=== PATIENT | male | born 1975 | race American Indian/Alaskan Native ===

== ENCOUNTER 2016-06-07 23:11 | Emergency (ER) | payer SELFPAY | END 2016-06-07 23:38 | disposition left against medical advice (07) | LOC: ED 23:11 | DX: R05 Cough (principal); R50.9 Fever, unspecified; Z53.21 Procedure and treatment not carried out due to patient leaving prior to being seen by health care provider ==

== ENCOUNTER 2016-06-08 09:36 | Emergency (ER) | payer OTHER ==
[2016-06-08 10:12] LABS: Basophils % (Auto) 0.5 % (0.0-1.8); Eosinophils % (Auto) 0.3 % (0.0-4.3); Hematocrit 42.3 % (35.5-45.6); Hemoglobin 13.9 gm/dl (11.8-15.2); Mean Corpuscular HGB Conc 33 % (32-34); Mean Corpuscular Hemoglobin 29 pg (28-32); Mean Corpuscular Volume 90 fl (84-94); Platelet Count 302 K/mm3 (140-440); Red Blood Count 4.71 M/mm3 (3.65-5.03); Red Cell Distribution Width 14.4 % (13.2-15.2); White Blood Count 10.8 K/mm3 (4.5-11.0)
[2016-06-08 10:28] LABS: Anion Gap 16 mmol/L; BUN/Creatinine Ratio 9.09; Blood Urea Nitrogen 10 mg/dL (9-20); Calcium 9.5 mg/dL (8.4-10.2); Carbon Dioxide 26 mmol/L (22-30); Glucose 63 mg/dL (75-100); Potassium 4.1 mmol/L (3.6-5.0); Sodium 136 mmol/L (137-145)
--- NOTE | 2016-06-08 11:16 | XRay Report ---
PA and lateral chest: SOB. A frontal projection is generally unremarkable. The heart is normal in size and there is no vascular congestion nor is there any obvious infiltrate. There may be mild pleural thickening along the lower lateral left chest wall. In the lateral projection there is some question concerning a linear thickening in the lingula region. No prior study. Impression: Possible scar involving the lingula segment and left pleural surface. Doubt acute process.
--- NOTE | 2016-06-08 13:42 | Emergency Department Report ---
- General Chief Complaint: Dyspnea/Respdistress Stated Complaint: COUGH/POSS PNUEMONIA Time Seen by Provider: 06/08/16 13:12 Source: patient Mode of arrival: Ambulatory Limitations: No Limitations - History of Present Illness Initial Comments: 41-year-old male with a past medical history HIV and hypertension presents to the hospital with complaints of cough with green mucus for the past 4 days. Patient denies fever. Patient didn't smell left-sided rib and back pain worse with coughing. Pain rated 2/10 in intensity. Patient complains of mild palpitations with mild shortness of breath with exertion. Denies calf tenderness or edema. Patient states he has had pneumonia 4 times this yeardiagnosed by various emergency departments and treated with antibiotics. Patient has his first primary care doctor scheduled for the does not have infectious disease or ID doctor currently. Patient states his CD4 count was greater than 200 and his viral load is undetectable. He has been compliant with his HIV medication - Related Data Previous Rx's Medication Instructions Recorded Last Taken Type Azithromycin [Zithromax Z-ADDI] 1 dose PO DAILY 5 Days 06/08/16 Unknown Rx Allergies Allergy/AdvReac Type Severity Reaction Status Date / Time No Known Allergies Allergy Unverified 06/08/16 09:42 ED Review of Systems ROS: Stated complaint: COUGH/POSS PNUEMONIA Other details as noted in HPI Comment: All other systems reviewed and negative Other: Constitutional: No fevers chills Eyes: No eye pain visual changes ENT: No ear pain or throat pain Neck: Denies pain Respiratory: As per HPI Cardiovascular: As per HPI GI: Denies abdominal pain, nausea, vomiting, diarrhea : Denies dysuria Musculoskeletal: As per HPI Skin: Denies rash, lesions, erythema Neurologic: Denies headache, numbness, weakness Psychiatric: Denies suicidal ideation, hallucinations ED Past Medical Hx - Past Medical History Previous Medical History?: Yes Hx Hypertension: Yes Hx HIV: Yes - Surgical History Past Surgical History?: No - Social History Smoking Status: Never Smoker Substance Use Type: Alcohol - Medications Home Medications: Home Medications Medication Instructions Recorded Confirmed Last Taken Type Azithromycin [Zithromax Z-ADDI] 1 dose PO DAILY 5 Days 06/08/16 Unknown Rx ED Physical Exam - General Limitations: No Limitations - Other Other exam information: General: No limitations, patient is alert in no acute distress Head exam: Atraumatic, normocephalic Eyes exam: Normal appearance, pupils equal reactive to light, extraocular movements intact ENT: Moist mucous membrane, normal oropharynx Neck exam: Normal inspection, full range of motion, no meningismus nontender Respiratory exam: Clear to auscultation bilateral, no wheezes, rales, crackles Cardiovascular: Normal rate and rhythm Abdomen: Soft, nondistended, and nontender, with normal bowel sounds, no rebound, or guarding Extremity: Full range of motion normal inspection no deformity Back: Normal Inspection, full range of motion, no tenderness Neurologic: Alert, oriented x3, cranial nerves intact, no motor or sensory deficit Psychiatric: normal affect, normal mood Skin: Warm, dry, intact ED Course Vital Signs 06/08/16 09:42 Temperature 98.9 F Pulse Rate 91 H Respiratory 16 Rate Blood Pressure 129/71 O2 Sat by Pulse 100 Oximetry ED Medical Decision Making - Lab Data Result diagrams: 06/08/16 09:56 06/08/16 09:56 Lab Results 06/08/16 06/08/16 Range/Units 09:56 09:56 WBC 10.8 (4.5-11.0) K/mm3 RBC 4.71 (3.65-5.03) M/mm3 Hgb 13.9 (11.8-15.2) gm/dl Hct 42.3 (35.5-45.6) % MCV 90 (84-94) fl MCH 29 (28-32) pg MCHC 33 (32-34) % RDW 14.4 (13.2-15.2) % Plt Count 302 (140-440) K/mm3 Lymph % (Auto) 22.3 (13.4-35.0) % [place] % (Auto) 8.4 H (0.0-7.3) % Eos % (Auto) 0.3 (0.0-4.3) % Baso % (Auto) 0.5 (0.0-1.8) % Lymph # 2.4 (1.2-5.4) K/mm3 [place] # 0.9 H (0.0-0.8) K/mm3 Eos # 0.0 (0.0-0.4) K/mm3 Baso # 0.1 (0.0-0.1) K/mm3 Seg Neutrophils % 68.5 (40.0-70.0) % Seg Neutrophils # 7.4 (1.8-7.7) K/mm3 Sodium 136 L (137-145) mmol/L Potassium 4.1 (3.6-5.0) mmol/L Chloride 98.0 (98-107) mmol/L Carbon Dioxide 26 (22-30) mmol/L Anion Gap 16 mmol/L BUN 10 (9-20) mg/dL Creatinine 1.1 (0.8-1.5) mg/dL Estimated GFR > 60 ml/min BUN/Creatinine Ratio 9.09 % Glucose 63 L (75-100) mg/dL Calcium 9.5 (8.4-10.2) mg/dL - Radiology Data Radiology results: report reviewed (chest x-ray: Scarring to lingular) - Medical Decision Making Patient stable in the ED. No fever, normal WBC count, and no infiltrate on x- ray. Patient very concerned about possibility of pneumonia/early pneumonia and wants Levaquin. I discussed the risk of antibiotics resistance from being treated multiple times with antibiotics the last few months. I question whether or not patient had pneumonia each time especially if he has this chronic scarring on chest x-ray. This was discussed with patient. I will cover with a Z-Addi since he is concerned however, explain to him no definitive infiltrate has been seen. Follow-up with an alternative PMD, ID, and pulmonology will be provided. - Differential Diagnosis pneumonia, bronchitis, viral syndrome Critical Care Time: No Critical care attestation.: If time is entered above; I have spent that time in minutes in the direct care of this critically ill patient, excluding procedure time. ED Disposition Clinical Impression: Acute bronchitis, HIV disease Disposition: DISCHARGED TO HOME OR SELFCARE Is pt being admited?: No Does the pt Need Aspirin: No Condition: Stable Instructions: Acute Bronchitis (ED), Human Immunodeficiency Virus Infection (ED ) Additional Instructions: Take the medication as prescribed. Return if symptoms worsen. Follow-up with the doctors provided Prescriptions: Azithromycin [Zithromax Z-ADDI] 1 dose PO DAILY 5 Days Referrals: ARGENIS BRITT MD [Staff Physician] - 3-5 Days (Primary care doctor) RENEA ROSAS MD [Staff Physician] - 3-5 Days ([place]) XANDER NEGRETE MD [Staff Physician] - 3-5 Days (Infectious disease doctor) Time of Disposition: 13:46
[2016-06-08 14:16] VITALS: BP 128/74
== END 2016-06-08 14:16 | disposition home or self-care (01) ==
LOC: ED 09:36
DX: J20.9 Acute bronchitis, unspecified (principal); I10 Essential (primary) hypertension
CPT/HCPCS: 36415; 71020; 80048; 85025; 87040; 99284